=== PATIENT | male | born 1975 | race Caucasian/White ===

== ENCOUNTER 2018-05-08 07:17 | Day surgery (SDC) | payer OTHER, BC ==
[~2018-05-08 07:17] MED LIST: CEFAZOLIN 1 GM INJ; GLYCOPYRROLATE 0.4 MG INJ
[2018-05-08 08:41] LABS: ADD MAN DIFF? NO
[2018-05-08 08:45] LABS: INR 1.09; PROTIME 14.2 Sec (11.9-14.9); PT RATIO 1.1
[2018-05-08 08:46] LABS: PARTIAL THROMBOPLASTIN TIME 33.4 Sec (23.0-35.0)
[2018-05-08] MEDS ORDERED: MIDAZOLAM 1 MG/ML 2 ML INJ ×2 (09:05→09:32)
[2018-05-08] MEDS ORDERED: FENTAnyl 50 MCG/ML VIAL (09:05)
[2018-05-08] MEDS ORDERED: PROPOFOL 40 ML (09:05)
[2018-05-08] MEDS ORDERED: PROPOFOL 20 ML (09:16)
[2018-05-08] MEDS ORDERED: KETAMINE (50 MG/ML) 10 ML VIAL (09:17)
[2018-05-08 09:24] LABS: WHITE BLOOD COUNT 8.4 10^3/ul (4.8-10.8)
[2018-05-08 09:24] LABS: BASOPHILS % 0.2 % (0.0-2.0); EOSINOPHILS # 0.2 10^3/ul (0.0-0.5); EOSINOPHILS % 1.9 % (0.0-7.0); HEMATOCRIT 29.7 % (42.0-52.0); HEMOGLOBIN 9.5 g/dl (14.0-18.0); LYMPHOCYTES # 0.8 10^3/ul (0.8-2.9); LYMPHOCYTES % 9.4 % (15.0-51.0); MEAN CORPUSCULAR HEMOGLOBIN 26.5 pg (29.0-33.0); MEAN CORPUSCULAR VOLUME 82.7 fl (82.0-101.0); MEAN PLATELET VOLUME 10.9 fl (7.4-10.4); MONOCYTE # 1.4 10^3/ul (0.3-0.9); MONOCYTES % 16.6 % (0.0-11.0); NEUTROPHILS % 71.4 % (39.0-77.0); PLATELET COUNT 228 10^3/UL (140-415); RED BLOOD COUNT 3.59 10^6/ul (4.70-6.10); RED CELL DISTRIBUTION WIDTH 14.1 % (11.5-14.5)
[2018-05-08 09:30] LABS: HOLD TRANSMISSIONS 1
[2018-05-08 09:33] LABS: ALANINE AMINOTRANSFERASE 15 IU/L (13-69); ALBUMIN 3.4 g/dl (3.3-4.9); ALBUMIN/GLOBULIN RATIO 0.91; ALKALINE PHOSPHATASE 101 IU/L (42-121); ANION GAP 11 (5-13); ASPARTATE AMINO TRANSFERASE 15 IU/L (15-46); BILIRUBIN,INDIRECT 0.4 mg/dl (0-1.1); BILIRUBIN,TOTAL 0.4 mg/dl (0.2-1.3); CALCIUM 9.2 mg/dl (8.4-10.2); CARBON DIOXIDE 20 mmol/L (21-31); CHLORIDE 104 mmol/L (97-110); Estimated GFR 25 mL/min (>60); GLUCOSE 140 mg/dl (70-220); SODIUM 135 mmol/L (135-144); TOTAL PROTEIN 7.1 g/dl (6.1-8.1)
[2018-05-08 09:36] LABS: BLOOD UREA NITROGEN 51 mg/dl (7-20); CREATININE 2.75 mg/dl (0.61-1.24)
[2018-05-08] MEDS: BUPIVACAINE 0.5% (SDV) 30 ML INJ (09:51)
[2018-05-08] MEDS: LIDOCAINE 1% (MDV) 20 ML INJ (09:51)
[2018-05-08] MEDS: LIDOCAINE 2% (MDV) 20 ML INJ (09:51)
[2018-05-08] MEDS: POLYMYXIN/BACITRACIN 1L IRRIG (14:23)
== END 2018-05-08 14:00 | disposition home or self-care (01) ==
LOC: SDS 07:17
DX: T87.89 Other complications of amputation stump (principal); Y83.8 Other surgical procedures as the cause of abnormal reaction of the patient, or of later complication, without mention of misadventure at the time of the procedure; I73.9 Peripheral vascular disease, unspecified; E66.01 Morbid (severe) obesity due to excess calories; Z68.36 Body mass index [BMI] 36.0-36.9, adult; E11.9 Type 2 diabetes mellitus without complications
CPT/HCPCS: 28820; 73620; 80053; 82962; 85025; 85610; 85730; 87070; 87075; 87102; 88304; 88311